=== PATIENT | male | born 1990 | race Caucasian/White ===

== ENCOUNTER 2018-12-12 10:05 | Emergency (ER) | payer BC ==
--- NOTE | 2018-12-12 10:22 | EDM.PDOC ---
ED [facility] GENERAL MEDICAL PROBLEM - General Chief Complaint: Eye Problems Stated Complaint: ISSUES WITH LEFT EYE Time Seen by Provider: 12/12/18 10:11 Source of Information: Reports: Patient History Limitations: Reports: No Limitations - History of Present Illness INITIAL COMMENTS - FREE TEXT/NARRATIVE: HISTORY AND PHYSICAL: History of present illness: Patient is a 28 year old male who presents to the ED today for concern of headache, left eye pain and watering since this morning. Patient states he does have a history of allergies which have been flaring up and does feel that this has worsened the headache that is behind his left eye. Patient states he's also noticed that his left eye has been watering along with the headache. Patient denies any history of headache. Patient denies blurry vision or change in vision. Patient denies any injury or trauma to the eye. Patient denies any obvious deformities of the eye. Patient denies fever, chills, chest pain, shortness of breath, or cough. Denies headache, neck stiff ness, change in vision, syncope, or near syncope. Denies nausea, vomiting, abdominal pain, diarrhea, constipation, or dysuria. Has not noted any blood in urine or stool. Patient has been eating and drinking appropriately. Review of systems: As per history of present illness and below otherwise all systems reviewed and negative. Past medical history: As per history of present illness and as reviewed below otherwise noncontributory. Surgical history: As per history of present illness and as reviewed below otherwise noncontributory. Social history: See social history for further information Family history: As per history of present illness and as reviewed below otherwise noncontributory. Physical exam: General: Patient is alert, oriented, and in no acute distress. Patient sitting comfortably on exam table. HEENT: Atraumatic, normocephalic, pupils equal and reactive bilaterally, negative for conjunctival pallor or scleral icterus, mucous membranes moist, TMs normal bilaterally, throat clear, neck supple, nontender, trachea midline. No drooling or trismus noted. No meningeal signs. No hot potato voice noted. No obvious deformities of the eye. EOMs intact without pain or difficulty. Left eye is slightly tearful without injection or crusting. No surrounding edema of the face. Lungs: Clear to auscultation, breath sounds equal bilaterally, chest nontender. Heart: S1S2, regular rate and rhythm without overt murmur Abdomen: Soft, nondistended, nontender. Negative for masses or hepatosplenomegaly. Negative for costovertebral tenderness. Pelvis: Stable nontender. Genitourinary: Deferred. Rectal: Deferred. Skin: Intact, warm, dry. No lesions or rashes noted. Extremities: Atraumatic, negative for cords or calf pain. Neurovascular unremarkable. Neuro: Awake, alert, oriented. Cranial nerves II through XII unremarkable. Cerebellum unremarkable. Motor and sensory unremarkable throughout. Exam nonfocal. Notes: Patient expresses resolution of symptoms with oxygen today. I did partially suspect medical history headache because in patient's symptoms as oxygen helped with resolution of his pain or discomfort. CT scan does show some mild thickening of the sinuses and patient states he does feel that this contributes to his symptoms so will treat with antibiotic at this time. Patient continues to decline all other diagnostics for complete workup and discussed the limitations of this with patient. Discussed the importance for follow-up with the primary care provider. Voices understanding and is agreeable to plan of care. Denies any further questions or concerns at this time. Diagnostics: Head CT, Patient declines all lab diagnostics Therapeutics: Oxygen Prescription: Augmentin Impression: Acute maxillary sinusitis Headache, unspecified Plan: 1. Take medication as prescribed. You can alternate ibuprofen and Tylenol as checked her for pain and discomfort. 2. Follow-up with a primary care provider as discussed. Return to the ED as needed and as discussed. Definitive disposition and diagnosis as appropriate pending reevaluation and review of above. left eye Pain Score (Numeric/FACES): 5 - Related Data Allergies Allergy/AdvReac Type Severity Reaction Status Date / Time No Known Allergies Allergy Verified 12/12/18 10:18 Home Meds: Home Meds Ranitidine [Zantac] 12/12/18 [History] ED ROS GENERAL - Review of Systems Review Of Systems: ROS reveals no pertinent complaints other than HPI. ED EXAM GENERAL W FULL EYE - Physical Exam Exam: See Below (see dictation) Course - Vital Signs Last Recorded V/S: Last Vital Signs Temp 36.3 C 12/12/18 10:19 Pulse 78 12/12/18 10:19 Resp 16 12/12/18 10:19 BP 137/97 H 12/12/18 10:19 Pulse Ox 98 12/12/18 10:19 Departure - Departure Time of Disposition: 11:47 Disposition: Home, Self-Care 01 Clinical Impression: Acute sinusitis Qualifiers: Sinusitis location: maxillary Recurrence: non-recurrent Qualified Code(s): J01.00 - Acute maxillary sinusitis, unspecified Headache Qualifiers: Headache type: unspecified Headache chronicity pattern: unspecified pattern Intractability: not intractable Qualified Code(s): R51 - Headache - Discharge Information Referrals: PCP,None [Primary Care Provider] - Forms: ED Department Discharge Additional Instructions: The following information is given to patients seen in the emergency department who are being discharged to home. This information is to outline your options for follow-up care. We provide all patients seen in our emergency department with a follow-up referral. The need for follow-up, as well as the timing and circumstances, are variable depending upon the specifics of your emergency department visit. If you don't have a primary care physician on staff, we will provide you with a referral. We always advise you to contact your personal physician following an emergency department visit to inform them of the circumstance of the visit and for follow-up with them and/or the need for any referrals to a consulting specialist. The emergency department will also refer you to a specialist when appropriate. This referral assures that you have the opportunity for follow-up care with a specialist. All of these measure are taken in an effort to provide you with optimal care, which includes your follow-up. Under all circumstances we always encourage you to contact your private physician who remains a resource for coordinating your care. When calling for follow-up care, please make the office aware that this follow-up is from your recent emergency room visit. If for any reason you are refused follow-up, please contact the [facility] Emergency Department at and asked to speak to the emergency department charge nurse. [facility] [address] [place] [address] [id number] [address] [id number] 1. Take medication as prescribed. You can alternate ibuprofen and Tylenol as checked her for pain and discomfort. 2. Follow-up with a primary care provider as discussed. Return to the ED as needed and as discussed.
--- NOTE | 2018-12-12 11:11 | CT ---
Indication: HEADACHE, LEFT EYE PAIN STARTING YESTERDAY WITH NO INJURY Technique: CT of the head without contrast. Coronal and sagittal images. Bone and soft tissue algorithm. Comparison: No prior studies available for comparison at this institution. Findings: No acute intracranial hemorrhage or extra-axial collection. No evidence of acute cortical infarction. No mass effect or midline shift. Normal cerebral volume. The ventricles are normal in size, shape and contour. There is normal alexander and white matter differentiation. The orbital contents are normal. Mild mucosal thickening in the right maxillary sinus. Trace left maxillary sinus mucosal thickening. Mastoid air cells are clear. No calvarial fractures. No lytic or sclerotic osseous lesions within the calvarium or skull base. Scalp and other imaged soft tissue structures are normal. Impression: 1. No acute intracranial abnormality. 2. Mild mucosal thickening in the right maxillary sinus. Trace left maxillary sinus mucosal thickening. Please note that all CT scans at this facility use dose modulation, iterative reconstruction, and/or weight-based dosing when appropriate to reduce radiation dose to as low as reasonably achievable. Dictated by Karthik Faustin MD @ Dec 12 2018 11:04AM Signed by Dr. Karthik Faustin @ Dec 12 2018 11:10AM
== END 2018-12-12 11:59 | disposition home or self-care (01) ==
LOC: MW.ED 10:05
DX: J01.00 Acute maxillary sinusitis, unspecified (principal)
CPT/HCPCS: 70450; 70450-26; 99283; 99284-25